=== PATIENT | male | born 1980 | race Caucasian/White ===

== ENCOUNTER 2024-08-20 18:32 | Outpatient (CLI) | payer BC, SELFPAY ==
--- NOTE | 2024-08-20 19:00 | CRLHL7_ITS ---
For Patients: As a result of the Century Cures Act, medical imaging exams and procedure reports are released immediately into your electronic medical record. You may view this report before your referring provider. If you have questions, please contact your health care provider. INDICATION: Low back pain. TECHNIQUE : Lumbar spine MRI without contrast. COMPARISON: Radiographs from 08/08/2024. FINDINGS : Five lumbar type vertebral bodies, with the last fully formed disc space designated as L5-S1. Normal lumbar lordotic curve. No recent compression fracture or marrow replacing process. Lower cord/conus signal is normal. The conus terminates at a normal location. No intradural lesion. A left-sided renal cyst. Discs/Endplates: L5-S1 moderate disc height loss, disc desiccation and endplate remodeling. Associated type 2 Modic change. Mild disc height loss and disc desiccation L3-4 and L4-5. Remaining discs are within normal limits. Findings at individual levels as follows: T11-12: No spinal canal or neural foraminal stenosis. T12-L1: No spinal canal or neural foraminal stenosis. L1-2: No spinal canal or neural foraminal stenosis. L2-3: No spinal canal or neural foraminal stenosis. L3-4: Minimal disc bulge. No spinal canal or neural foraminal stenosis. L4-5: Shallow central protrusion with annular fissure. Bilateral low-grade facet arthrosis. No spinal canal or neural foraminal stenosis. L5-S1: Mild disc osteophyte complex, asymmetric to the right. A superimposed 7 millimeter right central protrusion which contacts the traversing right S1 nerve root. No spinal canal or neural foraminal stenosis. Imaged SI joints: Minimal arthrosis. Imaged sacrum: Within normal limits. IMPRESSION: 1. No acute fracture or marrow replacing process. 2. At L5-S1, a right central protrusion with annular fissure which contacts the traversing right S1 nerve root. 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 3. Minimal spondylosis elsewhere. Dictated by Ruslan Gross MD @ 08/21/2024 2:24:30 PM (Electronically Signed)
--- OUTSIDE RECORDS SUMMARY | 2024-08-21 00:47 | XMS_ITS | Clinical Summary ---
Author Organization [facility] Address [address] [place] [id number] Care Team Providers Care Cardiac Nurse Name Role Phone Pcp, No Primary Care Provider Unavailabl e Allergies No known active allergies Medications IBUPROFEN ORAL Take by mouth. Active tobramycin (TOBREX) 0.3 % ophthalmic solutionIndicat ions:Normal exam Place 1-2 Drops into right eye every 4 hours. Use 48 hours after the symptoms are gone 5 mL 04/12/2022 Active Social History Tobacco Use Types Packs/Day Years Used Date Smoking Tobacco: Never Assessed Sex and Gender Information Value Date Recorded Sex Assigned at Not on file Legal Sex Male 11:14 PM CDT Gender Identity Not on file Sexual Orientation Not on file Obstetrics History Last Filed Vital Signs Vital Sign Reading Time Taken Comments Blood Pressure 115/80 04/12/2022 3:00 PM [employer] Pulse 74 04/12/2022 3:00 PM [employer] Temperature 36.9 C (98.5 F) 04/12/2022 12:54 PM [employer] Respiratory Rate 16 04/12/2022 3:00 PM [employer] Oxygen Saturation 99% 04/12/2022 3:00 PM [employer] Inhaled Oxygen Concentration - - Weight 102.1 kg (225 lb) 04/12/2022 12:54 PM [employer] Height 185.4 cm (6' 1) 04/12/2022 12:54 PM [employer] Body Mass Index 29.69 04/12/2022 12:54 PM [employer]AR[employer] Plan of Treatment Not on file Insurance [address] [place] [id number] [facility] [address] [address] [place] [id number] [employer] COMP on file [address] [place] [id number] Care Teams Cardiac Nurse Relationship Specialty Start Date End Date Pcp, No . PCP - General 10/06/18
== END 2024-08-20 18:33 | disposition home or self-care (01) ==
LOC: MRI 18:32
PROVIDERS: PCP Internal Medicine; Visit Provider Internal Medicine
DX: M54.50 Low back pain, unspecified (principal); M51.27 Other intervertebral disc displacement, lumbosacral region; M47.896 Other spondylosis, lumbar region
CPT/HCPCS: 72148

== ENCOUNTER 2024-09-21 08:08 | Outpatient (CLI) | payer BC, SELFPAY | END 2024-09-21 08:09 | disposition home or self-care (01) | LOC: INJ CL 08:10 | PROVIDERS: PCP Internal Medicine; Visit Provider Family Medicine | DX: M54.16 Radiculopathy, lumbar region (principal); M51.369 Other intervertebral disc degeneration, lumbar region without mention of lumbar back pain or lower extremity pain | CPT/HCPCS: 62323; J0702; Q9966 ==